=== PATIENT | female | born 1985 | race Caucasian/White ===

== ENCOUNTER 2023-01-19 09:08 | Emergency (ER) | payer MEDICAID ==
[~2023-01-19] VITALS: Ht 160 cm; Wt 113.6 kg
[2023-01-19 09:14] VITALS: BP 149/86; PULSE 81; RESP 18; TEMP 97.3; O2SAT 99
[2023-01-19] MEDS ORDERED: hydrOXYzine 25 MG tablet PO ONE (11:20)
[2023-01-19] MEDS ORDERED: clonazePAM 0.5mg tablet PO SCH (11:20)
[2023-01-19] MEDS ORDERED: clonazePAM 0.5mg tablet PO ONE (11:20)
[2023-01-19] MEDS ORDERED: gabapentin 400mg capsule PO SCH (11:20)
[2023-01-19] MEDS ORDERED: gabapentin 400mg capsule PO ONE (11:20)
[2023-01-19] MEDS ORDERED: CLON-528 PO ×2 (11:29→12:04)
[2023-01-19] MEDS ORDERED: GABA-535 PO (12:09)
[2023-01-19] MEDS ORDERED: HYDR-3686 PO (12:09)
== END 2023-01-19 13:05 | disposition home or self-care (01) ==
LOC: ER 09:08
DX: Z00.00 Encounter for general adult medical examination without abnormal findings (principal); F41.9 Anxiety disorder, unspecified; Z88.6 Allergy status to analgesic agent; Z79.899 Other long term (current) drug therapy
CPT/HCPCS: 99284; Q0177

== ENCOUNTER 2023-02-25 07:30 | Emergency (ER) | payer SELFPAY ==
[~2023-02-25] VITALS: Ht 160 cm; Wt 126.6 kg
[~2023-02-25 07:30] MED LIST: CLON-528 PO; GABA-535 PO
[2023-02-25 09:19] LABS: STREP A SCREEN NEGATIVE (Neg)
[2023-02-25] MEDS ORDERED: ipratropium/albuterol 3ml nebule NEB ONE (09:40)
[2023-02-25] MEDS ORDERED: methylPREDNISolone sod succ 125mg/2ml vial IM ONE (09:40)
[2023-02-25 09:55] VITALS: PULSE 70; RESP 18; O2SAT 98
[2023-02-25 10:00] VITALS: PULSE 76; RESP 18; O2SAT 99
[2023-02-25] MEDS ORDERED: ALB0.5UD IH (10:41)
[2023-02-25] MEDS ORDERED: AZIT250T82 PO (10:41)
[2023-02-25] MEDS ORDERED: METH4TAB81 PO (10:41)
[2023-02-25 10:51] VITALS: BP 148/72; PULSE 68; RESP 18; TEMP 98.8; O2SAT 94
== END 2023-02-25 10:54 | disposition home or self-care (01) ==
LOC: ER 07:30
DX: J06.9 Acute upper respiratory infection, unspecified (principal); Z20.822 Contact with and (suspected) exposure to COVID-19; J45.909 Unspecified asthma, uncomplicated; E03.9 Hypothyroidism, unspecified; Z79.899 Other long term (current) drug therapy
CPT/HCPCS: 71045; 87081; 87502; 87503; 87811; 87880; 94640; 96372; 99284; J2930; 94760